=== PATIENT | female | born 1975 ===

== ENCOUNTER 2017-03-04 08:45 | Emergency (ER) | payer SELFPAY ==
[2017-03-04 08:55] VITALS: RESP 20; O2SAT 98
[2017-03-04 08:56] VITALS: BMI 24.7
[2017-03-04 09:03] VITALS: TEMP 98
--- NOTE | 2017-03-04 09:16 | ED PDOC ---
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[employer] polish [id number]) History/Exam Limitations: no limitations Onset/Duration Of Symptoms: Days (7), Intermittent Episodes, Gradual Current Symptoms Are (Timing): Intermittent Episodes Severity: Mild Quality: Dull Modifying Factors: None Exacerbating Factors: None Past Medical History Reviewed: Historical Data, Nursing Documentation, Vital Signs Vital Signs: Last Vital Signs Temp 98 F 03/04/17 09:00 Pulse 78 03/04/17 10:29 Resp 20 03/04/17 09:00 BP 138/96 H 03/04/17 10:29 Pulse Ox 98 03/04/17 10:17 - Family History Family History: States: Unknown Family Hx - Living Arrangements Living Arrangements: With Family - Social History Current smoker - smoking cessation education provided: No - Immunization History Hx Tetanus Toxoid Vaccination: No Hx Influenza Vaccination: Yes Hx Pneumococcal Vaccination: No - Home Medications Home Medications: Ambulatory Orders Medication Instructions Recorded Naproxen [Naprosyn] 500 mg PO BID PRN #20 tablet 05/11/16 Metoprolol Succinate 25 mg PO DAILY #30 tab.er.24h 03/04/17 - Allergies Allergies/Adverse Reactions: Allergies Allergy/AdvReac Type Severity Reaction Status Date / Time No Known Allergies Allergy Verified 03/04/17 09:00 Review of Systems ROS Statement: Except As Marked, All Systems Reviewed And Found Negative Constitutional: Negative for: Fever, Chills Cardiovascular: Positive for: Chest Pain. Negative for: Palpitations, Edema, Light Headedness Respiratory: Negative for: Cough, Shortness of Breath Gastrointestinal: Negative for: Nausea, Vomiting, Abdominal Pain Physical Exam - Reviewed Nursing Documentation Reviewed: Yes Vital Signs Reviewed: Yes - Physical Exam Appears: Positive for: Uncomfortable Head Exam: Positive for: ATRAUMATIC, NORMAL INSPECTION, NORMOCEPHALIC Eye Exam: Positive for: Normal appearance, EOMI, PERRL Neck: Positive for: Normal, Painless ROM, Supple Cardiovascular/Chest: Positive for: Regular Rate, Rhythm, Chest Non Tender. Negative for: Edema, Gallop, Murmur, Bradycardia, Tachycardia, Ectopy, Friction Rub, Irregularly Irregular Respiratory: Positive for: Normal Breath Sounds. Negative for: Decreased Breath Sounds, Accessory Muscle Use, Crackles, Rales, Rhonchi, Stridor, Wheezing , Respiratory Distress Gastrointestinal/Abdominal: Positive for: Normal Exam, Bowel Sounds, Soft. Negative for: Tenderness Back: Positive for: Normal Inspection. Negative for: L CVA Tenderness, R CVA Tenderness Extremity: Positive for: Normal ROM. 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 Negative for: Motor/Sensory Deficits, Facial Droop - Laboratory Results Result Diagrams: 03/04/17 09:20 03/04/17 09:20 - ECG ECG: Positive for: Interpreted By Me ECG Rhythm: Positive for: Normal QRS, Normal ST Segment, Sinus Rhythm. Negative for: ST/T Changes Interpretation Of Abn EKG: rate of 80, no evidence of ischemia O2 Sat by Pulse Oximetry: 98 Pulse Ox Interpretation: Normal - Radiology X-Ray: Interpreted by Me X-Ray Interpretation: No Acute Disease - Progress ED Course And Treament: no sx now. a single undetectable trop r/o mi in this low prob pt with a nml ecg. advise close f/u with pmd and cards advise no activity not even sexual until cleared by cardiology. all of pt's questions were answered and pt agree's with plan. Re-evaluation Time: 10:30 Condition: Improved Disposition - Clinical Impression Clinical Impression: Chest pain - Patient ED Disposition Is Patient to be Admitted: No Counseled Patient/Family Regarding: Studies Performed, Diagnosis, Need For Followup, Rx Given - Disposition Referrals: [facility] [Outside] (2 to 3 days) Jerry Campos MD [Staff Provider] - (2 to 3 days) Disposition: Routine/Home Disposition Time: 10:30 Condition: GOOD Prescriptions: Metoprolol Succinate 25 mg PO DAILY #30 tab.er.24h Instructions: Chest Pain (ED), Hypertension (ED) Forms: [facility] (Citizen [place]) Print Language: THAI
[2017-03-04 09:34] LABS: BASO # 0.1 K/uL (0.0-0.2); BASO % 1.3 % (0.0-2.0); EOS # 0.1 K/uL (0.0-0.7); EOS % 2.4 % (0.0-4.0); HEMATOCRIT 41.5 % (34.0-47.0); LYMPH # 1.5 K/uL (1.0-4.3); LYMPH % 26.1 % (20.0-40.0); MEAN CELL VOLUME 89.6 fl (81.0-99.0); MEAN CORPUSCULAR HEMOGLOBIN 29.5 pg (27.0-31.0); MEAN CORPUSCULAR HGB CONC 32.9 g/dL (33.0-37.0); MEAN PLATELET VOLUME 8.1 fl (7.2-11.7); MONO # 0.5 K/uL (0.0-0.8); MONO % 9.4 % (0.0-10.0); NEUT # 3.5 K/uL (1.8-7.0); NEUT % 60.8 % (50.0-75.0); NRBC % 0.1 % (0.0-0.0); RED CELL DISTRIBUTION WIDTH 12.9 % (11.5-14.5); WHITE BLOOD COUNT 5.7 K/uL (4.8-10.8)
[2017-03-04 09:43] LABS: PARTIAL THROMBOPLASTIN TIME 30.4 Seconds (25.6-37.1)
[2017-03-04 09:44] LABS: ALB/GLOB RATIO 1.2 (1.0-2.1); ALKALINE PHOSPHATASE 54 U/L (38-126); ALT/SGPT 48 U/L (9-52); AST/SGOT 32 U/L (14-36); BILIRUBIN,TOTAL 0.6 mg/dl (0.2-1.3); BLOOD UREA NITROGEN 8 mg/dl (7-17); CALCIUM 8.7 mg/dL (8.4-10.2); CARBON DIOXIDE 27 mmol/L (22-30); CHLORIDE 105 mmol/L (98-107); GFR AFRICAN-AMERICAN > 60; GLUCOSE,RANDOM 86 mg/dL (65-105); LIPASE 90 U/L (23-300); POTASSIUM 4.5 MMOL/L (3.6-5.0); SODIUM 140 mmol/l (132-148); TOTAL PROTEIN 7.1 G/DL (6.3-8.2)
[2017-03-04 11:43] VITALS: BP 130/70; PULSE 82
--- NOTE | 2017-03-04 13:51 | RAD ---
HISTORY: cp COMPARISON: No prior. FINDINGS: LUNGS: No active pulmonary disease. PLEURA: No significant pleural effusion identified, no pneumothorax apparent. CARDIOVASCULAR: Normal. OSSEOUS STRUCTURES: No significant abnormalities. VISUALIZED UPPER ABDOMEN: Normal. OTHER FINDINGS: None. IMPRESSION: No active disease.
--- NOTE | 2017-03-05 12:01 | CARD ---
APPROVED REPORT EKG Measurement Heart [id number] <Conclusion> Normal sinus rhythm Normal ECG
== END 2017-03-04 11:43 | disposition home or self-care (01) ==
LOC: H.ER 08:45
DX: R07.89 Other chest pain (principal)